=== PATIENT | male | born 1995 | race African-American/Black ===

== ENCOUNTER 2016-07-20 19:00 | Emergency (ER) | payer SELFPAY ==
--- NOTE | ~2016-07-20 | ER ---
[facility] 21 Y [address] ROOM: [place] [address] LOCATION: ED ADMIT DATE: 07/20/2016 ER/Outpatient Report DISCHARGE DATE: 07/20/2016 FAMILY PHYSICIAN: PHYSICIAN, NO ATTENDING PHYSICIAN: Peyman Welch CHIEF COMPLAINT: New lesions around the penis and scrotum. HISTORY OF PRESENT ILLNESS: The patient did not communicate this out of concerns for privacy before evaluation. He states that he had unprotected intercourse 3 to 4 days ago and is concerned about STIs. The same day he had intercourse, he felt like there are some areas that showed up around the scrotum and suprapubic region, that were painful and are rapidly changing. They do have a white center to them. He denies any penile discharge. He did have some burning once or twice afterwards with urination, however, does not have any other acute issues. He denies any ulcer-like areas. He also does not want any testing for HIV as he does not want to give blood today. He denies history of genital warts. PAST MEDICAL HISTORY: As documented on the record and has been reviewed by me. SOCIAL HISTORY: As documented on the record and has been reviewed by me. MEDICATIONS: As documented on the record and have been reviewed by me. ALLERGIES: DOCUMENTED ON THE RECORD AND HAVE BEEN REVIEWED BY ME. REVIEW OF SYSTEMS: All systems were reviewed and are negative except as noted in the HPI. PHYSICAL EXAMINATION: VITAL SIGNS: Blood pressure 153/74, pulse 97, respiratory rate 18, temperature 97.8, SpO2 is 98% on room air. Pain is rated 6/10. GENERAL: An age-appropriate male, in no obvious pain or distress. Resting comfortably on the exam chair. HEENT: Normal to inspection. No obvious abnormalities. CHEST: Even and unlabored respirations. EXTREMITIES: Peripheral pulses are intact and strong and bounding. SKIN: Warm, dry, and intact. ABDOMEN: Normal to inspection. PAT[facility] AGE: 21 Y [address] ROOM: [place] [address] LOCATION: ED ADMIT DATE: 07/20/2016 ER/Outpatient Report DISCHARGE DATE: 07/20/2016 FAMILY PHYSICIAN: PHYSICIAN, NO ATTENDING PHYSICIAN: Peyman Welch : Normal circumcised male genitalia with no obvious abnormalities appreciated. There are no ulcers, no purulence. There are pearly papules around the stinson radiata. No ulcerations or pustules. The scrotum is notable for multiple areas of folliculitis, most prominent on the left inferior aspects. Multiple areas of healing follicles versus genital warts as well. The testicles and spermatic cords are normal to palpation bilateral. LABORATORY DATA AND X-RAYS: Gonorrhea and chlamydia screen is negative. IMPRESSION: Folliculitis of the scrotum. EMERGENCY DEPARTMENT COURSE: The patient was seen and evaluated as above. He is encouraged to keep the area clean and dry and to not shave until it has resolved. He should monitor for any advancing or changing of his symptoms in the area. This could be genital warts, although, it is unclear at this time, and the areas in question are most consistent with folliculitis. He did state that he has shaved his genitals relatively recently. I feel that it has most likely contributed to his current presentation. I did offer testing for syphilis and HIV, and he declined as he did not want to give blood today. He does not require any further interventions. Tylenol and ibuprofen for discomfort. All questions were answered, and the patient was discharged in good condition. MD RAFFI LOWERY/johannal /[id number] d: 07/21/16 0114 t: 08/02/16 0825, OUTPATIENT REPORT
== END 2016-07-20 20:32 | disposition disaster alternative care site (69) ==
LOC: GMED 19:00
DX: L73.9 Follicular disorder, unspecified (principal)

== ENCOUNTER 2016-07-27 22:03 | Emergency (ER) | payer SELFPAY ==
--- NOTE | ~2016-07-27 | ER ---
[facility] AGE: 21 Y [address] ROOM: [place] [id number] LOCATION: [facility] ADMIT DATE: 07/27/2016 ER/Outpatient Report DISCHARGE DATE: 07/27/2016 FAMILY PHYSICIAN: PHYSICIAN, NO ATTENDING PHYSICIAN: Talita Kim Time of Arrival: 2203 hours. Time of Evaluation: 2220 hours. CHIEF COMPLAINT: Sore throat. HISTORY OF PRESENT ILLNESS: This is a 21-year-old male, who presents to the ER, who states he has been having a sore throat for the past week or so. The patient states he has also had a little bit of a cough. He does not believe he has been running any fevers. He states that no one else at home is ill at this time. He denies any other problems at this time. ALLERGIES: NO KNOWN ALLERGIES. MEDICATIONS: None. PAST MEDICAL HISTORY: Negative. SOCIAL HISTORY: He does drink alcohol occasionally. He smokes cigars and marijuana. REVIEW OF SYSTEMS: A 10-point review of systems was completed and was negative with the exception of those discussed in the HPI. PHYSICAL EXAMINATION: VITAL SIGNS: Weight 73.2 kg taken, blood pressure is 117/71, pulse 86, respirations 16, temperature 98.9 degrees tympanically, saturations 95% on room air. [place] Coma Score is 15. GENERAL: An alert, calm, well-developed male, in no acute distress. The patient smells strongly of marijuana or cigar smoke. HEENT: Head: Normocephalic. Eyes: Pupils are equal and reactive to light. Ears: TMs display good light reflexes bilaterally. Auditory canals clear. Nose: Turbinates pink with no drainage. Throat is erythematic. No exudates are seen. He does display moist mucous membranes. [facility] 21 Y [address] ROOM: [place] [address] LOCATION: [facility] ADMIT DATE: 07/27/2016 ER/Outpatient Report DISCHARGE DATE: 07/27/2016 FAMILY PHYSICIAN: PHYSICIAN, JAYLEN ATTENDING PHYSICIAN: Talita Kim LUNGS: Clear to auscultation bilaterally. No wheezes or crackles. Normal respiratory effort. HEART: Regular rate and rhythm. No lifts, thrills, or murmurs. EXTREMITIES: No clubbing, cyanosis, or edema. He has full range of motion of all limbs. LABORATORY DATA AND X-RAYS: CBC: White count of 11.8, hemoglobin 15.2, platelet 198. [place] test was negative. Strep test was negative. Chest x-ray was negative for any infiltrate. IMPRESSION: 1. Pharyngitis. 2. Slight cough. ASSESSMENT AND PLAN: We will dismiss the patient home. He needs to take Tylenol or ibuprofen as needed for pain or fever. He may do Chloraseptic [place] [id number], gargle salt water, monitor his symptoms. Follow up with his primary care physician if he does not improve. The patient understands and agrees with care. TREY HILL PA-C FOR MD BOBBY CASILLAS/angie /[id number] d: 07/28/16 0202 t: 07/28/16 1818, OUTPATIENT REPORT
[2016-07-27 22:45] LABS: BASOPHIL % 0.3 %; EOSINOPHIL # 0.3 K/uL (0.0-0.5); EOSINOPHIL % 2.4 %; HEMATOCRIT 45.6 % (37.0-53.0); HEMOGLOBIN 15.2 g/dL (12.0-17.0); IMMATURE GRANULOCYTE % 0.3 %; LYMPHOCYTE # 2.3 K/uL (0.8-4.0); LYMPHOCYTE % 19.7 %; MCH 30.6 pg (27.0-34.0); MCHC 33.3 gm/dL (32.0-36.5); MCV 91.8 fl (83.0-98.0); MONOCYTE % 8.3 %; MPV 10.1 fl (9.4-12.4); NEUTROPHIL # (ANC) 8.1 K/uL (1.4-9.0); NRBC % 0 /100WBC (0-0.00); PLATELET COUNT 198 K/uL (150-450); RBC 4.97 M/uL (4.00-6.00); RDW-CV 11.8 % (11.9-14.6); WBC 11.8 K/uL (4.0-11.0)
== END 2016-07-27 23:47 | disposition disaster alternative care site (69) ==
LOC: GMED 22:03
PROVIDERS: Emergency Medicine
DX: J02.9 Acute pharyngitis, unspecified (principal); R05 Cough